=== PATIENT | male | born 1955 | race Caucasian/White ===

== ENCOUNTER 2017-01-17 15:11 | Emergency (ER) | payer BC, OTHER ==
[~2017-01-17] VITALS: Ht 193 cm; Wt 127.0 kg
[2017-01-17 15:12] VITALS: TEMP 36.5; Ht 193 cm; Wt 127.0 kg
[2017-01-17] MEDS ORDERED: MECLIZINE HCL 25 MG TAB PO STA (15:43)
[2017-01-17] MEDS ORDERED: SODIUM CHLORIDE 0.9% 1000ML 1,000 ML IV ONE (15:45)
[2017-01-17] MEDS ORDERED: DIAZEPAM INJ 5 MG/ML 2 ML CARP IV ONE (15:45)
[2017-01-17 15:58] VITALS: O2SAT 95
[2017-01-17] MEDS ORDERED: CRS/10 PO (16:04)
[2017-01-17] MEDS ORDERED: ONDA4TAB46 PO (16:04)
[2017-01-17] MEDS ORDERED: METOPROLOL (16:04)
[2017-01-17] MEDS ORDERED: ANT25 PO (16:04)
[2017-01-17] MEDS ORDERED: METF-384 PO (16:04)
[2017-01-17] MEDS ORDERED: AMLO-110 PO (16:18)
[2017-01-17] MEDS ORDERED: LISI-725 PO (16:18)
[2017-01-17] MEDS ORDERED: NVLG SQ (16:18)
[2017-01-17] MEDS ORDERED: ASPI81TA28 PO (16:18)
[2017-01-17] MEDS ORDERED: LVMI SQ (16:18)
[2017-01-17] MEDS ORDERED: SITA50TA3 PO (16:18)
[2017-01-17] MEDS ORDERED: METO25TA56 PO (16:18)
[2017-01-17] MEDS ORDERED: ROSU20TA22 PO (16:20)
[2017-01-17 16:32] LABS: URINE APPEARANCE CLEAR (CLEAR); URINE BILIRUBIN NEG (NEG); URINE COLOR YELLOW; URINE EPITHELIAL CELL AUTO 20-30 /lpf (0-5); URINE NITRITE NEG (NEG); URINE PH 7.5 (4.5-7.5); URINE SPECIFIC GRAVITY 1.027 (1.000-1.030); UROBILINOGEN NEG (NEG); ZZUR CULT IF INDIC CLEAN CATCH NO
[2017-01-17 16:36] LABS: MANUAL MICROSCOPIC REQUIRED? NO; REVIEW REQ? YES
[2017-01-17 16:38] LABS: SULFASALICYLIC ACID POS (NEG)
[2017-01-17 16:39] LABS: BASO % 0.1 %; BASO ABS # 0.01 K/uL (0-0.2); COMPLETE YES; EOS % 1.1 %; HEMATOCRIT 50.9 % (42-52); IG% 0.8 %; MEAN CELL VOLUME 84.3 fL (80-100); MEAN CORPUSCULAR HEMOGLOBIN 27.3 pg (25-34); MEAN CORPUSCULAR HGB CONC 32.4 g/dl (32-36); MEAN PLATELET VOLUME 10.7 fL (7.4-10.4); MONO % 5.9 %; NEUT % 68.1 %; PLATELET COUNT 214 K/uL (130-400); RED BLOOD COUNT 6.04 M/uL (4.7-6.1); WHITE BLOOD COUNT 7.93 K/uL (4.8-10.8)
[2017-01-17 16:47] LABS: PARTIAL THROMBOPLASTIN RATIO 1.1; PROTHROMBIN TIME (PATIENT) 10.7 SECONDS (9.0-12.0)
[2017-01-17 16:58] LABS: BUN/CREATININE RATIO 15.9 (10-20); CALCIUM 9.1 mg/dl (8.5-10.1); CREATININE 1.1 mg/dl (0.60-1.40); POTASSIUM 3.9 mmol/L (3.5-5.1)
[2017-01-17 17:08] LABS: ALB/GLOB RATIO 0.9 (0.9-2); THYROID STIMULATING HORMONE 0.728 uIu/ml (0.300-4.500)
[2017-01-17 17:33] LABS: LYME DISEASE AB IGG NEG (NEG); LYME DISEASE AB IGM NEG (NEG)
--- NOTE | 2017-01-17 17:39 | DIAGNOSTIC IMAGING REPORT ---
BRAIN W/O FOR IAC CLINICAL HISTORY: Vertigo symptoms. Hearing loss b/l. Hearing loss TECHNIQUE: Multi axial MRI acquisition COMPARISON STUDY: None FINDINGS: Diffusion-weighted images show no acute ischemic event. Signal characteristics of the cerebellar as well as cerebral hemispheres are unremarkable. The internal auditory canals are symmetric. The ventricular system is midline. IMPRESSION: Negative study The above report was generated using voice recognition software. It may contain grammatical, syntax or spelling errors. Electronically signed by: Jim Tolentino M.D. 01/17/2017 5:38 PM Dictated Date/Time: 01/17/2017 5:35 PM
[2017-01-17 18:58] VITALS: BP 163/94; PULSE 71; O2SAT 99
--- NOTE | 2017-01-17 20:52 | EMERGENCY ROOM VISIT NOTE ---
History First contact with patient: 15:33 Chief Complaint: OTHER COMPLAINT Stated Complaint: SUDDEN HEARING LOSS, DIZZY, NAUSEA, VOMITING History of Present Illness The patient is a 61 year old male who presents to the Emergency Room with complaints of sudden hearing loss, dizziness, nausea, and vomiting over the past one day. The patient states that he had a normal day yesterday, and sat on his couch last night. The patient states that he got up around 11 PM and felt incredibly dizzy and began to vomit diffusely. He went to [facility] where CT scan and blood work was performed and was without significant findings. He was discharged home with Zofran and meclizine. The patient was told to follow with his primary care physician or come here for MRI if his symptoms persist. The patient states that despite the medication he continues to have decreased hearing, primarily in the right ear, as well as intermittent nausea. The patient does not have neck pain, chest pain, chest tightness, shortness of breath, palpitations, fever, or chills. No recent injury. No recent URI symptoms or tick bites. The patient is diabetic with hypertension, but considers himself usually healthy. His sugar has been good this week. He rates his overall discomfort a 7/10 that worsened with rapid movement of his head and certain position changes. Review of Systems More than 10 systems were reviewed and otherwise negative with the exception of history of present illness. Past Medical/Surgical History Diabetes, hypertension Social History Smoking Status: Never Smoker Housing Status: lives with family Current/Historical Medications Scheduled Amlodipine (Norvasc), 5 MG PO QAM Aspirin (Aspirin Ec), 81 MG PO QAM Insulin Aspart (Novolog), UNITS SQ TIDM Insulin Detemir (Levemir), 52 UNITS SQ HS Lisinopril (Zestril), 20 MG PO BID Metformin Hcl (Glucophage), 1,000 MG PO BID Metoprolol Tartrate (Lopressor) (Lopressor), 25 MG PO QAM Rosuvastatin Calcium (Rosuvastatin Calcium), 20 MG PO QAM Sitagliptin (Januvia), 50 MG PO QAM Scheduled PRN Meclizine HCl (Meclizine HCl), 25 MG PO Q8 PRN for Dizziness or Vertigo Ondansetron Hcl (Zofran), 4 MG PO Q6 PRN for Nausea Allergies Coded Allergies: Statins (Unverified Adverse Reaction, Mild, "BODYACHES", 01/17/17) Physical Exam Vital Signs Date Time Temp Pulse Resp B/P (MAP) Pulse Ox O2 Delivery O2 Flow Rate FiO2 01/17/17 18:58 71 20 163/94 99 01/17/17 16:08 74 01/17/17 15:58 95 Room Air 01/17/17 15:23 73 20 179/97 98 Room Air 01/17/17 15:12 36.5 77 18 97 Room Air Pain Rating (0-10): 0 Physical Exam VITALS: Vitals are noted on the nurse's note and reviewed by myself. Vital signs stable. GENERAL: Well-developed, well-nourished, white male, who is in no acute distress and resting comfortably. Patient is cooperative with the examination. HEAD: Normocephalic atraumatic. EARS: External ear normal. External auditory canals clear, tympanic membranes pearly camacho without erythema or effusion bilaterally. EYES: Pupils equal round and reactive to light and accommodation. Conjunctivae without injection, sclerae without icterus. Extraocular movements intact. Rapid movement of the eyes does cause mild horizontal nystagmus as well as subjective dizziness NOSE: Patent, turbinates without inflammation or discharge. MOUTH: Mucous membranes moist. Tonsils are not enlarged. Pharynx without erythema, blood, or exudate. Uvula midline. Airway patent. NECK: Supple without nuchal rigidity. No lymphadenopathy. No thyromegaly. Cervical spine is nontender. HEART: Regular rate and rhythm without murmurs gallops or rubs. LUNGS: Clear to auscultation bilaterally without wheezes, rales or rhonchi. No retractions or accessory muscle use. MUSCULOSKELETAL: No muscle atrophy, erythema, or edema noted. Full range of motion without joint tenderness in all extremities NEURO: Patient was alert and oriented to person place and time. CN II through XII grossly intact. Deep tendon reflexes 2+ throughout. No focal neurological deficits Medical Decision & Procedures ER Provider Diagnostic Interpretation: BRAIN W/O FOR IAC CLINICAL HISTORY: Vertigo symptoms. Hearing loss b/l. Hearing loss TECHNIQUE: Multi axial MRI acquisition COMPARISON STUDY: None FINDINGS: Diffusion-weighted images show no acute ischemic event. Signal characteristics of the cerebellar as well as cerebral hemispheres are unremarkable. The internal auditory canals are symmetric. The ventricular system is midline. IMPRESSION: Negative study Laboratory Results 01/17/17 16:25 Red Blood Count 6.04, Mean Corpuscular Volume 84.3, Mean Corpuscular Hemoglobin 27.3, Mean Corpuscular Hemoglobin Concent 32.4, Mean Platelet Volume 10.7, Neutrophils (%) (Auto) 68.1, Lymphocytes (%) (Auto) 24.0, Monocytes (%) (Auto) 5.9, Eosinophils (%) (Auto) 1.1, Basophils (%) (Auto) 0.1, Neutrophils # (Auto) 5.40, Lymphocytes # (Auto) 1.90, Monocytes # (Auto) 0.47, Eosinophils # (Auto) 0.09, Basophils # (Auto) 0.01 01/17/17 16:25 Test 01/17/17 16:01 01/17/17 16:25 01/17/17 16:48 Urine Color YELLOW Urine Appearance CLEAR (CLEAR) Urine pH 7.5 (4.5-7.5) Urine Specific [place] 1.027 (1.000-1.030) Urine Protein 1+ (NEG) Urine Glucose (UA) 3+ (NEG) Urine Ketones NEG (NEG) Urine Occult Blood TRACE (NEG) Urine Nitrite NEG (NEG) Urine Bilirubin NEG (NEG) Urine Urobilinogen NEG (NEG) Urine Leukocyte Esterase NEG (NEG) Urine WBC (Auto) 1-5 /hpf (0-5) Urine RBC (Auto) 0-4 /hpf (0-4) Urine Hyaline Casts (Auto) 1-5 /lpf (0-5) Urine Epithelial Cells (Auto) 20-30 /lpf (0-5) Urine Bacteria (Auto) NEG (NEG) White Blood Count 7.93 K/uL (4.8-10.8) Red Blood Count 6.04 M/uL (4.7-6.1) Hemoglobin 16.5 g/dL (14.0-18.0) Hematocrit 50.9 % (42-52) Mean Corpuscular Volume 84.3 fL (80-100) Mean Corpuscular Hemoglobin 27.3 pg (25-34) Mean Corpuscular Hemoglobin Concent 32.4 g/dl (32-36) Platelet Count 214 K/uL (130-400) Mean Platelet Volume 10.7 fL (7.4-10.4) Neutrophils (%) (Auto) 68.1 % Lymphocytes (%) (Auto) 24.0 % Monocytes (%) (Auto) 5.9 % Eosinophils (%) (Auto) 1.1 % Basophils (%) (Auto) 0.1 % Neutrophils # (Auto) 5.40 K/uL (1.4-6.5) Lymphocytes # (Auto) 1.90 K/uL (1.2-3.4) Monocytes # (Auto) 0.47 K/uL (0.11-0.59) Eosinophils # (Auto) 0.09 K/uL (0-0.5) Basophils # (Auto) 0.01 K/uL (0-0.2) RDW Standard Deviation 43.8 fL (36.4-46.3) RDW Coefficient of Variation 14.2 % (11.5-14.5) Immature Granulocyte % (Auto) 0.8 % Immature Granulocyte # (Auto) 0.06 K/uL (0.00-0.02) Prothrombin Time 10.7 SECONDS (9.0-12.0) Prothromb Time International Ratio 1.0 (0.9-1.1) Activated Partial Thromboplast Time 27.3 SECONDS (21.0-31.0) Partial Thromboplastin Ratio 1.1 Anion Gap 6.0 mmol/L (3-11) Est Creatinine Clear Calc Drug Dose 102.6 ml/min Estimated GFR () 83.5 Estimated GFR (Non- 72.1 BUN/Creatinine Ratio 15.9 (10-20) Calcium Level 9.1 mg/dl (8.5-10.1) Magnesium Level 2.0 mg/dl (1.8-2.4) Total Bilirubin 0.4 mg/dl (0.2-1) Aspartate Amino Transf (AST/SGOT) 17 U/L (15-37) Alanine Aminotransferase (ALT/SGPT) 32 U/L (12-78) Alkaline Phosphatase 67 U/L (45-117) Troponin I < 0.015 ng/ml (0-0.045) Total Protein 7.1 gm/dl (6.4-8.2) Albumin 3.4 gm/dl (3.4-5.0) Globulin 3.7 gm/dl (2.5-4.0) Albumin/Globulin Ratio 0.9 (0.9-2) Thyroid Stimulating Hormone (TSH) 0.728 uIu/ml (0.300-4.500) Lyme Disease IgG Antibody NEG (NEG) Lyme Disease IgM Antibody NEG (NEG) Bedside Troponin I < 0.030 ng/ml (0-0.045) Medications Administered Medications (Trade) Dose Ordered Sig/Tamara Route Start Time Stop Time Status Last Admin Dose Admin Diazepam (Valium Inj) 10 mg NOW ONCE IV 01/17/17 15:45 01/17/17 15:49 DC 01/17/17 16:38 10 MG Meclizine HCl (Antivert Tab) 25 mg NOW STAT PO 01/17/17 15:43 01/17/17 15:49 DC 01/17/17 16:37 25 MG Sodium Chloride 1,000 ml @ 250 mls/hr Q4H ONCE IV 01/17/17 15:45 01/17/17 19:10 DC 01/17/17 14:30 250 MLS/HR ECG Change: Normal sinus rhythm @73 bpm Normal ECG No previous ECGs available ED Course Physical exam and history were performed. Nursing notes, EMR, and Medication List were personally reviewed. Patient appears to have dizziness, nausea, and vomiting acutely over the past one day. Clinically the patient's symptoms most correlate with vertigo, as he does have horizontal nystagmus and worsening of symptoms with certain positions. He evidently did have a CT scan within the past 16 hours that did not show acute findings. Because of his persistent symptoms I did elect to establish an IV. EKG was performed and was normal sinus rhythm without ST elevation. I discussed the case with my attending physician, Dr. Nunez, and we elected to perform an MRI of the brain. The patient was given Valium and meclizine here in the department. The patient's blood work is as above and was reviewed. He does not have a significantly elevated white blood cell count, gross anemia, bandemia, or significant electrolyte imbalance. Troponin 1 negative. TSH is euthyroid state. Lyme disease is negative. MRI was without acute findings. The patient was able to ambulate and use the bathroom as normal while here in the facility. He does not appear to have a cardiac etiology of his symptoms. His MRI, again, is normal. I suspect his symptoms are vertiginous in nature, and I did have a lengthy discussion with patient regarding this. I recommend that he have close follow-up as an outpatient, as he does not appear to need inpatient services at this time. He has Zofran and meclizine at home, and may continue to use these as prescribed. The patient was certainly invited back to the emergency department with any new, worsening, or concerning symptoms. He rated his discomfort a 1/10 at the time of departure. She was discharged home under the care of his who is acting as the rivet driver today. The chart was completed utilizing [employer] Speech Voice Recognition Software. Grammatical errors, random word insertions, pronoun errors, and incomplete sentences are an occasional consequence of this system due to software limitations, ambient noise, and hardware issues. Any formal questions or concerns about the content, text, or information contained within the body of this dictation should be directly addressed to the provider for clarification. . Medical Decision Differential diagnosis: Etiologies such as benign positional vertigo, dehydration, hypovolemia, anemia, tumor, infection, hypoglycemia, electrolyte abnormalities, cardiac sources, intracerebral event, toxicologic, neurologic, as well as others were entertained. [place] Drug Monitoring Program Search Results: no issues identified Impression Primary Impression: Vertigo Additional Impression: Dizziness Departure Information Dispostion Home / Self-Care Condition [employer] Forms HOME CARE DOCUMENTATION FORM, IMPORTANT VISIT INFORMATION Patient Instructions My [facility] Additional Instructions You were seen and evaluated today on an emergency basis only. This is not a substitute for, or an effort to provide, complete comprehensive medical care. It is not possible to recognize and treat all injuries or illnesses in a single emergency department visit. For this reason it is recommended that you followup with your primary care physician on Friday or Friday for ongoing care and evaluation. Continue meclizine and Zofran as previously prescribed. Drink plenty of fluids and remain well hydrated. You are welcome to return to the emergency department anytime with new, worsening, or concerning symptoms. Problem Qualifiers
== END 2017-01-17 19:00 | disposition home or self-care (01) ==
LOC: C.EDC 15:19
DX: R42 Dizziness and giddiness (principal); E11.9 Type 2 diabetes mellitus without complications; I10 Essential (primary) hypertension; Z79.82 Long term (current) use of aspirin; Z79.4 Long term (current) use of insulin; Z79.899 Other long term (current) drug therapy